=== PATIENT | female | born 1975 | race African-American/Black ===

== ENCOUNTER → 2016-11-28 | Outpatient (CLI) | payer OTHER ==
[~2016-11-28] MED LIST: ALEVE220 MG PO; BENADRYL25 MG PO; CLARITIN10 MG PO; FELDENE20 MG PO; FLEXERIL PO; HYDROCHLOROTHIA25 M2 PO; LIDODERM 5%1 PATC1 TRANSDERM; MULTI VITAMIN1 EACH PO; NORCO 10-325 T1 EACH PO; [UNRECOGNIZED DRUG - OTHER] PO
== END ==
LOC: RAD 10:34
DX: M43.26 Fusion of spine, lumbar region (principal)

== ENCOUNTER → 2017-03-16 | Outpatient (CLI) | payer OTHER | LOC: ULTRA 07:15 | DX: R10.2 Pelvic and perineal pain (principal) ==

== ENCOUNTER → 2018-06-05 | Outpatient (CLI) | payer OTHER | LOC: RAD 01:13 | DX: Z12.31 Encounter for screening mammogram for malignant neoplasm of breast (principal) ==

== ENCOUNTER → 2018-06-07 | Outpatient (CLI) | payer OTHER | LOC: BC 04:46 | DX: R92.8 Other abnormal and inconclusive findings on diagnostic imaging of breast (principal) ==

== ENCOUNTER → 2019-06-10 | Outpatient (CLI) | payer OTHER | LOC: RAD 08:56 | DX: Z12.31 Encounter for screening mammogram for malignant neoplasm of breast (principal) ==

== ENCOUNTER → 2020-07-13 | Outpatient (CLI) | payer BC, OTHER | LOC: BC 07:59 | PROVIDERS: ATTEND Obstetrics & Gynecology | DX: Z12.31 Encounter for screening mammogram for malignant neoplasm of breast (principal) ==

== ENCOUNTER → 2020-07-20 | Outpatient (CLI) | payer BC, OTHER | LOC: ULTRA 09:56 | PROVIDERS: ATTEND Radiology Diagnostic Radiology | DX: R92.8 Other abnormal and inconclusive findings on diagnostic imaging of breast (principal) ==